=== PATIENT | female | born 1955 | race Caucasian/White ===

== ENCOUNTER 2018-02-22 17:35 | Emergency (ER) | payer MEDICARE ==
[2018-02-22] MEDS ORDERED: LEVO75TA73 PO (17:53)
[2018-02-22] MEDS ORDERED: TIZA4CAP3 PO (17:53)
[2018-02-22] MEDS ORDERED: DIA5 PO (17:54)
--- NOTE | 2018-02-22 18:01 | ER Report ---
History and Physical Time Seen By MD: 17:55 Hx. of Stated Complaint: PT REPORTS L SIDE TO MID CERVICAL SPINE PAIN AND MID THORACIC SPINE PAIN, L SHOULDER PAIN, NUMBNESS IN ARMS AND LEGS, HEADACHES OCC, SINCE FALLING OFF A LADDER 6 WEEKS AGO ABOUT 5 FEET WITH NO MEDICAL CARE AFTER HPI/ROS CHIEF COMPLAINT: Fall, left-sided neck pain HISTORY OF PRESENT ILLNESS: 62-year-old female fell 6 weeks ago on a ladder that fell over onto its left side. She rolled the ladder down to the ground on gravel. She hit her left side. She had her head. She denies LOC. She suddenly has developed pretty severe left neck and left upper thoracic spine pain. Waking up with bilateral hand numbness for the last several days. She is unable to lay on her left side when she sleeps at night. She describes 9/10 pain without radiation to her extremities. She reports a long history of low back problems. She was on Percocet 10 12/14, but has been out of those for several months. She's tried taking ibuprofen without relief. She notes no vomiting, no visual changes to suggest head injury. Patient notes no incontinence. Patient notes no worsening of her lower back pain since the fall. REVIEW OF SYSTEMS: Respiratory: No cough, no dyspnea. Cardiovascular: No chest pain, no palpitations. Gastrointestinal: No vomiting, no abdominal pain. Musculoskeletal: As above Allergies: Coded Allergies: paroxetine (Verified Allergy, Unknown, 02/22/18) SEIZURES Home Meds Active Scripts Oxycodone Hcl/Acetaminophen (PERCOCET 5-325 MG TABLET) 1 Each Tablet, 1 EACH PO Q4-6H Y for PAIN, #12 Prov:DAKOTAH CARRINGTON DO 02/22/18 Prednisone 10 Mg Tab (PREDNISONE 10 MG TAB) 10 Mg Tablet, 10 MG PO QDAY Y for reduce inflammation, #9 2 tabs daily for 3 days 1 tab daily for 3 days Prov:DAKOTAH CARRINGTON Shelby DO 02/22/18 Methocarbamol (ROBAXIN-750) 750 Mg Tablet, 1 TAB PO TID Y for muscle spasm relief, #20 Prov:DAKOTAH CARRINGTON Shelby DO 02/22/18 Reported Medications Diazepam (VALIUM) 5 Mg Tablet, 5 MG PO 2-3XD, #15 TAB 02/22/18 Tizanidine Hcl (TIZANIDINE HCL) 4 Mg Capsule, 4 MG PO BID, CAPSULE 02/22/18 Levothyroxine Sodium (LEVOTHYROXINE SODIUM) 75 Mcg Tablet, 88 MCG PO QDAY, TAB 02/22/18 Reviewed Nurses Notes: Yes Old Medical Records Reviewed: Yes Hx Substance Use Disorder: No Hx Alcohol Use: No Constitutional Vital Sign - Last 24 Hours 02/22/18 02/22/18 02/22/18 02/22/18 17:39 18:05 18:34 19:42 Temp 98.9 Pulse 82 80 80 72 Resp 16 16 18 16 B/P (MAP) 140/86 148/81 (103) 119/60 (79) 116/72 (87) Pulse Ox 95 96 94 93 O2 Delivery Room Air Room Air Room Air Physical Exam General Appearance: The patient is alert, has no immediate need for airway protection and no current signs of toxicity. The patient of the head and neck reveals no tenderness of the head or the midline of the cervical spine. There is significant spasm of the left trapezius muscle and the left thoracic paraspinous musculature. HEENT: Pupils equal and round no injection. TMs normal, oropharynx without dental trauma Respiratory: Chest is non tender, lungs are clear to auscultation. No chest wall tenderness Cardiac: regular rate and rhythm Gastrointestinal: Abdomen is soft and non tender, no masses, bowel sounds normal. Musculoskeletal: Neck: Neck is supple and non tender. Extremities have full range of motion and are non tender. No evidence of trauma Skin: No rashes or lesions. DIFFERENTIAL DIAGNOSIS: After history and physical exam differential diagnosis was considered for back pain including but not limited to muscular pain, herniated disc, spine fracture, intra-abdominal causes and urinary tract infection. Additionally,head injury including but not limited to concussion, skull fracture, intraparenchymal contusion, subarachnoid, subdural and epidural hematoma. Medical Decision Making EKG/Imaging Imaging Results: CT scan of the head without contrast was obtained. The results of the study are no acute findings. The study was read by the radiologist. I viewed the images myself on the PACS system. Results: CT scan of the cervical spine without contrast was obtained. The results of the study are no acute findings. The study was read by the radiologist. I viewed the images myself on the PACS system. Results: CT scan of the thoracic spine without contrast was obtained. The results of the study are no acute findings. The study was read by the radiologist. I viewed the images myself on the PACS system. ED Course/Re-evaluation ED Course Patient was admitted to an examination room. H&P was done. The differential diagnoses was considered. Patient with a nonfocal neurologic examination. Patient with a history of trauma. She was sent for CT head, neck and thoracic spine to rule out occult fractures or pathology. Her CAT scans were unremarkable. Her results were shared with her. Patient was advised to conservative treatment plan. She'll be placed on steroids, Robaxin and Percocet for pain relief. She is advised to follow-up with primary care if unimproved in 3-5 days. She's provided information for primary care follow-up. She may benefit from physical therapy. Decision to Disposition Date: Feb 22, 2018 Decision to Disposition Time: 19:20 Depart Departure Latest Vital Signs Vital Signs Date Time Temp Pulse Resp B/P (MAP) Pulse Ox O2 Delivery O2 Flow Rate FiO2 02/22/18 19:42 72 16 116/72 (87) 93 Room Air 02/22/18 17:39 98.9 Impression: Primary Impression: Cervical strain Additional Impression: Strain of thoracic region Condition: Improved Disposition: HOME OR SELF-CARE Referrals: RUBEN BAR MD New Scripts Oxycodone Hcl/Acetaminophen (PERCOCET 5-325 MG TABLET) 1 Each Tablet 1 EACH PO Q4-6H Y for PAIN, #12 Prov: DAKOTAH CARRINGTON DO 02/22/18 Prednisone 10 Mg Tab (PREDNISONE 10 MG TAB) 10 Mg Tablet 10 MG PO QDAY Y for reduce inflammation, #9 2 tabs daily for 3 days 1 tab daily for 3 days Prov: DAKOTAH CARRINGTON DO 02/22/18 Methocarbamol (ROBAXIN-750) 750 Mg Tablet 1 TAB PO TID Y for muscle spasm relief, #20 Prov: DAKOTAH CARRINGTON DO 02/22/18 Patient Instructions: Cervical Strain (ED), Thoracic Back Strain (ED) Additional Instructions: Take ibuprofen 3 tablets 3 times a day with food Apply heating pad to your back Follow-up with primary care if unimproved in 3-5 days for further evaluation. Referral to physical therapy or other needed diagnostic tests Problem Qualifiers Primary Impression: Cervical strain Encounter type: initial encounter Qualified Codes: S16.1XXA - Strain of muscle, fascia and tendon at neck level, initial encounter Additional Impression: Strain of thoracic region Encounter type: initial encounter Qualified Codes: S29.019A - Strain of muscle and tendon of unspecified wall of thorax, initial encounter DAKOTAH CARRINGTON DO Feb 22, 2018 18:01
[2018-02-22] MEDS ORDERED: METHOCARBAMOL 500 MG TAB PO ONE (18:05)
--- NOTE | 2018-02-22 18:55 | RADIOLOGY IMAGING REPORT ---
FACILITY: [facility] PATIENT NAME: Doris Sanchez : 1955 MR: [id number] V: [id number] EXAM DATE: ORDERING PHYSICIAN: DAKOTAH CARRINGTON TECHNOLOGIST: Location: [facility] - [place] Patient: Doris Sanchez : 1955 Visit/Account:[id number] Date of Sevice: 02/22/2018 EXAMINATION: CT head without IV contrast HISTORY: Trauma. COMPARISON: None. TECHNIQUE: Contiguous axial images were obtained from the skull base to the vertex without intraven ous contrast. Sagittal and coronal reformatted images are also submitted. One of the following dose optimization techniques was utilized in the performance of this exam: Autom ated exposure control; adjustment of the mA and/or kV according to the patient's size; or use of an i terative reconstruction technique. Specific details can be referenced in the facility's radiology C T exam operational policy. FINDINGS: Brain volume: Normal. Ventricles: Normal. Acute ischemic changes: None. Hemorrhage: No acute intracranial hemorrhage. Masses/edema: None. Cleary-white: Negative. White matter: Normal. Vessels: Negative. Extra-axial: Negative. Calvarium/scalp: No acute fracture. Skull base/visualized face: Negative. Visualized sinuses/orbits: Negative. IMPRESSION: No acute fracture, hemorrhage or intracranial mass lesion. No CT evidence of acute infarct. Report Dictated By: Elizabeth Malave MD at 02/22/2018 6:49 PM Report E-Signed By: Elizabeth Malave MD at 02/22/2018 6:51 PM WSN:[id number]
--- NOTE | 2018-02-22 18:57 | RADIOLOGY IMAGING REPORT ---
[place] [facility] [place] Doris Sanchez : 1955 MR: [id number] V: [id number] EXAM DATE: ORDERING PHYSICIAN: DAKOTAH CARRINGTON TECHNOLOGIST: Location: [facility] [place] Patient: Doris Sanchez : 1955 Visit/Account:[id number] Date of Sevice: 02/22/2018 EXAMINATION: CT cervical spine without IV contrast HISTORY: Trauma. COMPARISON: None. TECHNIQUE: Axial images were obtained from the skull base through the upper thoracic spine without I V contrast administration. Coronal and sagittal reformatted images were obtained from the axial [facility] e data. One of the following dose optimization techniques was utilized in the performance of this exam: Autom ated exposure control; adjustment of the mA and/or kV according to the patient's size; or use of an i terative reconstruction technique. Specific details can be referenced in the facility's radiology C T exam operational policy. FINDINGS: Alignment: Straightening of the cervical spine without focal listhesis. Cranio-cervical junction: Negative. Vertebral bodies: Negative. Posterior elements: Negative. Hardware: None. Disc spaces: Negative. Soft tissues: The thyroid is small. Calcified plaque of the right carotid bulb. Visualized upper chest: Negative. IMPRESSION: 1. No acute fracture of the cervical spine. 2. Straightening of the cervical spine could be positional or related to muscle spasm. Report Dictated By: Elizabeth Malave MD at 02/22/2018 6:51 PM Report E-Signed By: Elizabeth Malave MD at 02/22/2018 6:54 PM WSN:[id number]
--- NOTE | 2018-02-22 19:19 | RADIOLOGY IMAGING REPORT ---
FACILITY: [facility] - [place] PATIENT NAME: Doris Sanchez : 1955 MR: [id number] V: [id number] EXAM DATE: ORDERING PHYSICIAN: DAKOTAH CARRINGTON TECHNOLOGIST: Location: [facility] - [place] Patient: Doris Sanchez : 1955 Visit/Account:[id number] Date of Sevice: 02/22/2018 EXAMINATION: CT thoracic spine without IV contrast HISTORY: Trauma. Fell off ladder 6 weeks ago. TECHNIQUE: Thin axial CT images of the thoracic spine were obtained without IV contrast, with sagit caty and coronal 2D reconstructed images. One of the following dose optimization techniques was utilized in the performance of this exam: Autom ated exposure control; adjustment of the mA and/or kV according to the patient's size; or use of an i terative reconstruction technique. Specific details can be referenced in the facility's radiology C T exam operational policy. COMPARISON: None. FINDINGS: Mild thoracic scoliosis. There is a convex-right midthoracic curve measuring 15 degrees with apex at T6-T7. Otherwise normal alignment along the thoracic spine. No evidence of acute fracture or subluxation in the thoracic spine. Vertebral body height is maintain ed. Posterior elements are intact, with normal alignment along the thoracic facet joints. The partially visualized posterior ribs appear intact bilaterally. Paraspinal soft tissues are unremarkable by CT. IMPRESSION: 1. No acute osseous findings along the thoracic spine. No evidence of fracture or subluxation. 2. Mild thoracic scoliosis. Report Dictated By: Dusty Newberry MD at 02/22/2018 7:10 PM Report E-Signed By: Dusty Newberry MD at 02/22/2018 7:14 PM WSN:[id number]
[2018-02-22] MEDS ORDERED: oxyCODONE/ACETAMIN 5/325MG TH 2 TAB/BOTTLE PO ONE (19:30)
[2018-02-22] MEDS ORDERED: predniSONE 20 MG TAB PO ONE (19:30)
[2018-02-22] MEDS ORDERED: METH-543 PO (19:31)
[2018-02-22] MEDS ORDERED: PRED-1 PO (19:31)
[2018-02-22] MEDS ORDERED: OXYC-865 PO (19:31)
[2018-02-22 19:42] VITALS: BP 116/72
== END 2018-02-22 19:58 | disposition home or self-care (01) ==
LOC: ER 17:51
DX: S16.1XXA Strain of muscle, fascia and tendon at neck level, initial encounter (principal); S29.019A Strain of muscle and tendon of unspecified wall of thorax, initial encounter
CPT/HCPCS: 70450; 72125; 72128; 99283; A9270; J7512